=== PATIENT | female | born 1955 | race Caucasian/White ===

== ENCOUNTER → 2022-06-17 09:28 | Outpatient (BNVA) | payer OTHER, MEDICARE, SELFPAY | PROVIDERS: Visit Provider Family Medicine | DX: H93.90 Unspecified disorder of ear, unspecified ear (principal); Z83.3 Family history of diabetes mellitus; L30.9 Dermatitis, unspecified | CPT/HCPCS: 80053; 80061; 84439; 84443 ==

== ENCOUNTER → 2022-09-20 09:40 | Outpatient (BNVA) | payer OTHER, MEDICARE, SELFPAY | PROVIDERS: PCP Family Medicine; Visit Provider Family Medicine | DX: E78.5 Hyperlipidemia, unspecified (principal) | CPT/HCPCS: 80053; 80061 ==

== ENCOUNTER 2023-05-14 06:00 | Outpatient (RCR) | payer MEDICARE, SELFPAY | END 2023-05-28 23:59 | disposition home or self-care (01) | LOC: GPT 06:00 | PROVIDERS: Visit Provider Family Medicine | DX: Z96.7 Presence of other bone and tendon implants (principal) | CPT/HCPCS: 97110; 97162; 97530 ==

== ENCOUNTER 2023-05-29 06:00 | Outpatient (RCR) | payer MEDICARE, SELFPAY | END 2023-06-26 23:59 | disposition home or self-care (01) | LOC: GPT 06:00 | PROVIDERS: Visit Provider Family Medicine | DX: Z96.7 Presence of other bone and tendon implants (principal) | CPT/HCPCS: 97110; 97112 ==

== ENCOUNTER 2023-06-27 06:00 | Outpatient (RCR) | payer MEDICARE, SELFPAY | END 2023-07-27 23:59 | disposition home or self-care (01) | LOC: GPT 06:00 | PROVIDERS: PCP Family Medicine; Visit Provider Family Medicine | DX: Z96.7 Presence of other bone and tendon implants (principal) | CPT/HCPCS: 97110; 97112; 97116 ==

== ENCOUNTER 2023-07-28 06:00 | Outpatient (RCR) | payer MEDICARE, SELFPAY | END 2023-08-26 23:59 | disposition home or self-care (01) | LOC: GPT 06:00 | PROVIDERS: PCP Family Medicine; Visit Provider Family Medicine | DX: Z96.7 Presence of other bone and tendon implants (principal) | CPT/HCPCS: 97110; 97112; 97116; 97164; 97530 ==

== ENCOUNTER 2023-08-27 06:00 | Outpatient (RCR) | payer MEDICARE, SELFPAY | END 2023-09-26 23:59 | disposition home or self-care (01) | LOC: GPT 06:00 | PROVIDERS: PCP Family Medicine; Visit Provider Family Medicine | DX: Z96.7 Presence of other bone and tendon implants (principal) | CPT/HCPCS: 97110; 97112 ==

== ENCOUNTER 2023-09-27 06:00 | Outpatient (RCR) | payer MEDICARE, SELFPAY | END 2023-10-26 23:59 | disposition home or self-care (01) | LOC: GPT 06:00 | PROVIDERS: PCP Family Medicine; Visit Provider Family Medicine | DX: Z96.7 Presence of other bone and tendon implants (principal) | CPT/HCPCS: 97110 ==

== ENCOUNTER 2023-10-27 06:00 | Outpatient (RCR) | payer MEDICARE, SELFPAY | END 2023-10-27 23:59 | disposition home or self-care (01) | LOC: GPT 06:00 | PROVIDERS: PCP Family Medicine; Visit Provider Family Medicine | DX: Z96.7 Presence of other bone and tendon implants (principal) | CPT/HCPCS: 97110; 97112 ==